=== PATIENT | male | born 1990 | race Caucasian/White ===

== ENCOUNTER 2017-10-13 06:32 | Day surgery (SDC) | payer MEDICAID ==
[2017-10-12 14:09] LABS: BASOPHILS 0.2 % (0-2); EOSINOPHILS 2.4 % (0-7); HEMATOCRIT 46.5 % (42.0-54.0); HEMOGLOBIN 16.2 g/dL (13.5-17.5); IMMATURE GRANULOCYTES 0.8 % (0-5); LYMPHOCYTES 20.5 % (15-50); MCH 30.3 pg (26.0-34.0); MCHC 34.8 g/dL (31.0-37.0); MCV 87.1 fL (80.0-100.0); MEAN PLATELET VOLUME 10.4 fL (7.4-10.4); MONOCYTES 7.1 % (2-11); PLATELET COUNT 265 10x3/uL (130-400); RBC 5.34 10x6/uL (4.20-6.10); RDW 13.2 % (11.5-14.5); WBC 8.3 10x3/uL (4.8-10.8)
[2017-10-12 14:33] LABS: CALC OSMOLALITY 283 mosm/kg (275-300); CALCIUM 9.2 mg/dL (8.5-10.1); CARBON DIOXIDE 30.4 mmol/L (21.0-32.0); CHLORIDE - SERUM 100 mmol/L (98-107); CREATININE - SERUM 0.9 mg/dL (0.6-1.3); GLUCOSE 121 mg/dL (74-106); POTASSIUM - SERUM 3.7 mmol/L (3.5-5.1); SODIUM 142 mmol/L (136-145); UREA NITROGEN 13 mg/dL (7-18); eGFR NON AFRICAN AMERICAN > 90 mL/min (90-120)
[~2017-10-13] VITALS: Ht 172.7 cm; Wt 92.5 kg
--- NOTE | ~2017-10-13 | OP ---
PATIENT NAME: NICKOLAS OGLESBY MEDICAL RECORD: [id number] :89 LOCATION:D.OPS ADMISSION DATE: SURGEON: EDWIN LINDER MD DATE OF OPERATION: 10/13/2017 DATE OF OPERATION: 10/13/2017 PREOPERATIVE DIAGNOSES: 1. Umbilical hernia. 2. Hypertension. POSTOPERATIVE DIAGNOSES: 1. Umbilical hernia. 2. Hypertension. PROCEDURE: Umbilical hernia repair without mesh. SURGEON: Edwin Linder MD REPORT OF PROCEDURE: The patient's abdomen was prepped and draped in sterile fashion. A semicircular incision was made on the inferior aspect of the umbilicus. Electrocautery was used to dissect through the subcutaneous tissues and through the umbilical stalk. We came through the base of the hernia sac which was fat containing. As we came around the hernia sac, we were able to eventually release it completely elevating the umbilicus. The hernia contents were all placed back into the abdominal cavity and the edges of the fascia were cleaned off in all directions. The hernia defect was about 1 x 0.5 cm in size. This was closed transversely with interrupted 0 Prolenes times 3. We then irrigated out the wound and reapproximated the umbilicus to the fascia using an interrupted 3-0 Vicryl. The subcutaneous tissues were reapproximated with interrupted 3-0 Vicryls and the skin was closed with running subcutaneous 4-0 Monocryl. A 10 mL of 0.25% Marcaine plain were infused into the surrounding tissues and the wound was dressed appropriately. COMPLICATIONS: None. CONDITION: Stable. ANESTHESIA: General endotracheal and local. BLOOD LOSS: Minimal. TRANSINT:[id number] Voice Confirmation ID: [id number] DOCUMENT ID: [id number] EDWIN LINDER MD CC: JANEL MURILLO [id number] DICTATION DATE: 10/13/17 0923 IRON ERECTOR: 10/13/17 1154 [facility] [address] [place] [address]
[~2017-10-13 06:32] MED LIST: HYDROCHLOROTHIA25 MG PO
[2017-10-13 08:15] VITALS: BP 136/94; Ht 172.7 cm; Wt 92.5 kg
[2017-10-13] MEDS ORDERED: HYDROCODONE-APA1 TAB PO (09:16)
== END 2017-10-13 12:25 | disposition home or self-care (01) ==
LOC: D.OPS 06:32
PROVIDERS: Surgery
DX: K42.9 Umbilical hernia without obstruction or gangrene (principal); I10 Essential (primary) hypertension; Z01.812 Encounter for preprocedural laboratory examination